=== PATIENT | female | born 1985 | race Caucasian/White ===

== ENCOUNTER 2020-07-08 18:21 | Emergency (ER) | payer MEDICAID ==
[~2020-07-08] VITALS: Ht 160 cm; Wt 43.1 kg
[2020-07-08 18:25] VITALS: BP 142/91
--- NOTE | 2020-07-08 18:30 | NUR ---
Pt taken to ER bed 12.
--- NOTE | 2020-07-08 18:31 | NUR ---
PT TAKEN TO BED 12.
--- NOTE | 2020-07-08 18:33 | NUR ---
35 y/o A&Ox4 female c/o dysuria 04/24 X1day describes as burning constant, radiates to suprapubic area. Pt states she was at work when this started this morning, hematuria present. LMP 06/21/20, denies fever, chills, N/V, or discharge. Denies PMH, RX NKA
--- NOTE | 2020-07-08 18:34 | NUR ---
Pt ambulated to restroom for UA collection.
[2020-07-08] MEDS ORDERED: KETOROLAC 30 MG/ML VIAL IM ONE (18:40)
--- NOTE | 2020-07-08 19:07 | NUR ---
Gave report to Kelly KIMBROUGH, transfered care at this time.
--- NOTE | 2020-07-08 19:08 | NUR ---
RECEIVED REPORT FROM KAYLAN PARSONS FOR CONTINUATION OF CARE
[2020-07-08] MEDS ORDERED: cefTRIAXone 1,000 MG in LIDOCAINE MPF 1% 2.1 ML IM ONE (19:30)
[2020-07-08] MEDS ORDERED: LIDOCAINE MPF 1% 5 ML ONE (19:54)
[2020-07-08] MEDS ORDERED: cefTRIAXone 1,000 MG VIAL ONE (19:54)
[2020-07-08 20:33] VITALS: BP 131/103
--- NOTE | 2020-07-08 20:33 | NUR ---
Patient discharged with v/s stable. Written and verbal after care instructions given and explained. Patient alert, oriented and verbalized understanding of instructions. Ambulatory with steady gait. All questions addressed prior to discharge. ID band removed. Patient advised to follow up with PMD. Rx of zofran, ibuprofen, keflex, phenazopyridine given. Patient educated on indication of medication including possible reaction and side effects. Opportunity to ask questions provided and answered. ERMD aware of current v/s.
--- NOTE | 2020-07-11 16:55 | NUR ---
Pt discharged with appropriate medication for diagnosis.
== END 2020-07-08 20:33 | disposition home or self-care (01) ==
LOC: MED 18:21
DX: N39.0 Urinary tract infection, site not specified (principal); R03.0 Elevated blood-pressure reading, without diagnosis of hypertension
CPT/HCPCS: 81002; 81025; 87086; 96372; 99284; J0696; J1885; J2001

== ENCOUNTER 2021-05-07 14:10 | Emergency (ER) | payer MEDICAID ==
[~2021-05-07] VITALS: Ht 153.7 cm; Wt 84.0 kg
[2021-05-07 14:29] VITALS: BP 160/75
--- NOTE | 2021-05-07 14:36 | NUR ---
PT TO WAIT IN LOBBY. GIVEN URINE CUP
--- NOTE | 2021-05-07 14:42 | NUR ---
36 Y/O FEMALE C/O VAGINAL PAIN 05/24 DESCRIBES SHARP AND BURNING RADIATES TO ABDOMEN RADIATES TO SUPRAPUBIC X3 DAYS. PT STATES, +N/-V, +VAGINAL BLEEDING WITH MODERATE CLOTS. DENIES FEVER/CHILLS, DENIES TRAUMA/INJURY. DENIES PMH NKA
[2021-05-07 15:07] LABS: BILIRUBIN,URINE NEGATIVE (NEGATIVE); BLOOD, URINE 3+ (NEGATIVE); LEUKOCYTE ESTERASE ,URINE 2+ (NEGATIVE); NITRITE, URINE NEGATIVE (NEGATIVE); PH,URINE 5.5 (5.0-9.0); UGLUCOSE NEGATIVE (NEGATIVE)
[2021-05-07 15:09] LABS: APPEARANCE,URINE HAZY (CLEAR); COLOR,URINE YELLOW (YELLOW)
[2021-05-07] MEDS ORDERED: KETOROLAC 15 MG/ML VIAL IM ONE (15:15)
--- NOTE | 2021-05-07 15:18 | NUR ---
PT TAKEN TO US
[2021-05-07 15:43] LABS: WBC,URINE TOO MANY TO COUNT /HPF (0-5)
[2021-05-07 16:17] LABS: BASOPHILS % (AUTO) 0.2 % (0.0-2.0); EOSINOPHILS % (AUTO) 0.1 % (0.0-4.0); HEMATOCRIT 39.5 % (36-48); HEMOGLOBIN 13.1 g/dL (12.0-16.0); LYMPHOCYTES # (AUTO) 1.4 K/uL (2.5-16.5); LYMPHOCYTES % (AUTO) 9.3 % (20.5-51.1); MEAN CORPUSCULAR HEMOGLOBIN 30 pg (27-31); MEAN CORPUSCULAR HGB CONC 33 g/dL (33-37); MEAN CORPUSCULAR VOLUME 90.4 fL (80-94); MONOCYTES # (AUTO) 0.6 K/uL (0.8-1.0); MONOCYTES % (AUTO) 4.2 % (1.7-9.3); NEUTROPHILS # (AUTO) 12.8 K/uL (1.8-7.7); NEUTROPHILS % (AUTO) 86.2 % (42.2-75.2); PLATELET COUNT (AUTO) 172 K/uL (140-450); RED BLOOD CELL COUNT(AUTO) 4.37 MIL/uL (4.20-5.40); RED CELL DISTRIBUTION WIDTH 13.5 % (11.6-13.7); WHITE BLOOD COUNT (AUTO) 14.9 K/uL (4.8-10.8)
--- NOTE | 2021-05-07 16:43 | NUR ---
PT TO GLORIA Soto
[2021-05-07] MEDS ORDERED: KETOROLAC 15 MG/ML VIAL IVP ONE (16:45)
[2021-05-07 16:49] LABS: ALBUMIN 4.5 g/dL (3.4-5.0); ANION GAP 13.1 (8-16); CARBON DIOXIDE 25.9 mmol/L (21-32); CREATININE 0.6 mg/dL (0.6-1.3); TOTAL BILIRUBIN 0.4 mg/dL (0.0-1.0)
--- NOTE | 2021-05-07 16:50 | NUR ---
OBTAINED CT CONSENT PLACED IN PT CHART.
--- NOTE | 2021-05-07 17:32 | NUR ---
PATIENT TAKEN TO CT VIA WHEELCHAIR
--- NOTE | 2021-05-07 17:46 | NUR ---
PT RETURNED FROM CT AND WHEELCHAIR TO ROOM 4
[2021-05-07] MEDS ORDERED: PHENAZOPYRIDINE 100 MG TAB PO ONE (18:55)
--- NOTE | 2021-05-07 19:02 | NUR ---
WET MOUNT WAS LEFT IN MICROBIO BIN AND SIGNED IN AT LAB.
[2021-05-07] MEDS ORDERED: CEPH-588 PO (19:59)
--- NOTE | 2021-05-07 20:03 | NUR ---
Dr. Koch examining patient.
[2021-05-07 20:13] VITALS: BP 145/72
--- NOTE | 2021-05-07 20:13 | NUR ---
Patient discharged with v/s stable. Written and verbal after care instructions given and explained. Patient alert, oriented and verbalized understanding of instructions. Ambulatory with steady gait. All questions addressed prior to discharge. ID band and IV access removed. Patient advised to follow up with PMD. Rx of KEFLEX given. Patient educated on indication of medication including possible reaction and side effects. Opportunity to ask questions provided and answered.
== END 2021-05-07 20:13 | disposition home or self-care (01) ==
LOC: MED 14:10
DX: N39.0 Urinary tract infection, site not specified (principal); N93.9 Abnormal uterine and vaginal bleeding, unspecified
CPT/HCPCS: 36415; 74177; 76830; 80053; 81001; 81025; 85025; 87086; 87210; 87491; 96374; 99285; J1885; Q0092; Q9967